=== PATIENT | female | born 1960 | race Two or more races ===

== ENCOUNTER 2018-05-09 14:34 | Outpatient (CLI) | payer OTHER | END 2018-05-09 14:40 | disposition home or self-care (01) | LOC: RAD 14:34 | DX: M25.531 Pain in right wrist (principal); M25.541 Pain in joints of right hand; M65.30 Trigger finger, unspecified finger ==

== ENCOUNTER 2022-11-11 14:52 | Emergency (ER) | payer OTHER ==
[~2022-11-11] VITALS: Ht 160 cm; Wt 67.1 kg
[2022-11-11] MEDS ORDERED: FARXIGA10 MG PO (15:14)
[2022-11-11] MEDS ORDERED: XARELTO20 MG (15:15)
[2022-11-11] MEDS ORDERED: LIPITOR40 M1 PO (15:15)
== END 2022-11-11 18:25 | disposition home or self-care (01) ==
LOC: ER 14:52
DX: S92.912A Unspecified fracture of left toe(s), initial encounter for closed fracture (principal); W22.09XA Striking against other stationary object, initial encounter; Y93.89 Activity, other specified; Y92.012 Bathroom of single-family (private) house as the place of occurrence of the external cause; Z85.3 Personal history of malignant neoplasm of breast

== ENCOUNTER 2025-06-09 11:23 | Outpatient (CLI) | payer OTHER ==
[~2025-06-09 11:23] MED LIST: FARXIGA10 MG PO; LIPITOR40 M1 PO; XARELTO20 MG
== END 2025-06-09 11:28 | disposition home or self-care (01) ==
LOC: RAD 11:23
DX: M25.511 Pain in right shoulder (principal); M79.603 Pain in arm, unspecified; S42.301A Unspecified fracture of shaft of humerus, right arm, initial encounter for closed fracture; R20.0 Anesthesia of skin; Z00.8 Encounter for other general examination

== ENCOUNTER 2025-06-10 07:40 | Outpatient (CLI) | payer OTHER | END 2025-06-10 08:07 | disposition home or self-care (01) | LOC: SONOGRAMA 07:40 | DX: M25.511 Pain in right shoulder (principal); Z00.8 Encounter for other general examination; R20.0 Anesthesia of skin; S42.301A Unspecified fracture of shaft of humerus, right arm, initial encounter for closed fracture; M79.603 Pain in arm, unspecified ==